=== PATIENT | male | born 1945 | race Caucasian/White ===

== ENCOUNTER → 2016-10-23 | Outpatient (CLI) | payer OTHER, MEDICARE ==
[~2016-10-23] MED LIST: ABILIFY2 MG PO; ABILIFY5 MG PO; ALLOPURINOL300 MG PO; AMLODIPINE BESY10 MG PO; AQUAPHOR W-NAT50 GM TP; BACTRIM,SEPT1 TABLET PO; BARRIER CREAM TP; BENTYL20 MG PO; BISAC-EVAC10 MG PR; Bactrim,Septra Singl PO; CALMOSEPTINE O120 GM TP; CELEBREX200 MG PO; CIPROFLOXACIN500 M1 PO; COLACE100 MG PO; COUMADIN,JANTOVE2 MG PO; COUMADIN1 MG PO; COUMADIN2 MG PO; COUMADIN2.5 MG PO; COUMADIN3 MG PO; CYMBALTA60 MG PO; Coumadin,Jantoven PO; Cymbalta PO; DIFLUCAN200 MG PO; DILAUDID2 MG PO; DULCOLAX10 MG PR; DURAGESIC25 MCG TD; Diflucan PO; Duragesic TD; FLOMAX0.4 MG PO; GLUCOPHAGE500 MG PO; GLYDO11 ML MM; GLYDO11 ML TP; GUAIFENESIN400 MG PO; HYDROCODON-ACE1 EAC8 PO; KEFLEX500 MG PO; LEVAQUIN500 MG PO; LEVAQUIN750 MG PO; LIDOCAINE HCL20 ML TP; LISINOPRIL40 MG PO; LOPRESSOR100 M1 PO; LOPRESSOR50 MG PO; LOTRIMIN AF24 GM TP; MAXIPIME1 GM IM; METFORMIN HCL1000 MG PO; METFORMIN HCL500 MG PO; METOPROLOL TAR100 MG PO; METOPROLOL TART50 MG PO; MILK OF MAGN PO; MILK OF MAGNESI10 ML PO; MIRALAX17 GM PO; MIRALAX255 GM PO; MUCUS RELIEF400 MG PO; NEURONTIN100 MG PO; NORCO 5/3251 TABLET PO; NORVASC10 MG PO; NORVASC5 MG PO; Norvasc PO; PHILLIPS'400 MG/5 M PO; PREDNISONE50 MG PO; PRUNE JUICE PO; Pradaxa PO; SENNA8.6 MG PO; SENOKOT,SENN1 TABLET PO; SIMVASTATIN10 MG PO; Senokot S,Pericolace PO; THERAGRAN1 TABLET PO; TOPROL XL50 MG PO; TYLENOL REGULA325 MG PO; TYLENOL WITH C1 EACH PO; Toprol XL PO; Vicodin,Norco 5/325 PO; WARFARIN PO; WARFARIN SODIU2.5 MG PO; WARFARIN SODIUM5 MG PO; ZESTRIL40 MG PO; ZOSYN 3.3753.375 GM IV; Zestril,Prinivil PO
== END ==
LOC: RAD 09:46
DX: R13.10 Dysphagia, unspecified (principal)
CPT/HCPCS: 74230; 92611 GN; G8996 GN CK; G8997 GN CK; G8998 GN CK

== ENCOUNTER → 2016-12-12 | Outpatient (CLI) | payer OTHER, MEDICARE | LOC: RAD 12:40 | DX: R13.10 Dysphagia, unspecified (principal) | CPT/HCPCS: 74230; 92611 GN ==

== ENCOUNTER 2017-01-03 18:19 | Inpatient (IN) | payer OTHER, MEDICARE ==
[~2017-01-03] VITALS: Ht 175.3 cm; Wt 94.1 kg
[2017-01-03 19:06] LABS: ADD MIUA? YES; BILIRUBIN NEGATIVE; BLOOD LARGE; COLOR YELLOW ((YELLOW)); GLUCOSE (STRIP) NEGATIVE; KETONES NEGATIVE; LEUKOCYTES LARGE; NITRITE POSITIVE; PROTEIN (STRIP) 100; SPECIFIC GRAVITY 1.011 (1.000-1.030); UROBILINOGEN 0.2 MG/DL (0.2-1.0)
[2017-01-03 19:11] LABS: HEMATOCRIT 42.4 % (38.0-50.0); MCH 27.6 PG (29.0-34.0); MCHC 31.6 G/DL (30.0-36.0); MCV 87.4 FL (86-99); MEAN PLAT.VOLUME 9.3 uM^3 (9.0-12.4); PLATELET COUNT 353 K/uL (156-360); RBC DIS.WIDTH-CV 19.2 % (11.8-14.6); RBC DIS.WIDTH-SD 61.1 % (39-53); RED BLOOD COUNT 4.85 M/uL (4.00-5.50); WHITE BLOOD COUNT 13.5 K/uL (4.1-10.2)
[2017-01-03 19:18] LABS: CHLORIDE 110 mEq/L (99-109); POTASSIUM 4.2 mEq/L (3.7-5.4); SODIUM 144 mEq/L (136-147)
[2017-01-03 19:19] LABS: GLUCOSE 165 mg/dL (70-99)
[2017-01-03 19:19] LABS: RED BLOOD CELLS TNTC /HPF (0-5); UCUL ADDED? YES; WHITE BLOOD CELLS TNTC /HPF (0-5)
[2017-01-03 19:21] LABS: ANION GAP 12 MEQ/L (2-14)
[2017-01-03 19:23] LABS: GFR ESTIMATE (CALCULATED) 33 mL/min/
[2017-01-03 19:24] LABS: UREA NITROGEN (BUN) 32 mg/dL (9-23)
[2017-01-03] MEDS ORDERED: COUMADIN2 MG PO (20:53)
[2017-01-03] MEDS ORDERED: WELLBUTRIN SR100 MG PO (20:55)
[2017-01-03] MEDS ORDERED: GABAPENTIN300 MG PO (20:55)
[2017-01-04 01:16] LABS: INTER. NORMALIZED RATIO 3.8; PROTHROMBIN TIME 39.9 (9.2-11.2); PTT 47.2 (25-32)
[2017-01-04 01:30] VITALS: BP 132/76
[2017-01-04 04:00] VITALS: BP 117/68
[2017-01-04 07:00] VITALS: BP 131/72
[2017-01-04 07:09] LABS: HEMATOCRIT 36.9 % (38.0-50.0); MCH 27.3 PG (29.0-34.0); MCHC 30.6 G/DL (30.0-36.0); MCV 89.1 FL (86-99); MEAN PLAT.VOLUME 10.2 uM^3 (9.0-12.4); PLATELET COUNT 295 K/uL (156-360); RBC DIS.WIDTH-CV 19.6 % (11.8-14.6); RBC DIS.WIDTH-SD 63.8 % (39-53); RED BLOOD COUNT 4.14 M/uL (4.00-5.50); WHITE BLOOD COUNT 14.8 K/uL (4.1-10.2)
[2017-01-04 07:28] LABS: ALKALINE PHOSPHATASE 138 IU/L (3-129); ANION GAP 10 MEQ/L (2-14); CHLORIDE 114 MEQ/L (99-109); GFR ESTIMATE (CALCULATED) 28 mL/min/; GLUCOSE 120 mg/dL (70-99); POTASSIUM 4.3 MEQ/L (3.7-5.4); SAMPLE HEMOLYSIS CHECK 0; SAMPLE ICTERIC CHECK 0; SAMPLE LIPEMIA CHECK 0; SODIUM 147 MEQ/L (136-147); TOTAL BILIRUBIN 0.9 MG/DL (0.0-1.0); UREA NITROGEN (BUN) 34 mg/dL (9-23)
[2017-01-04 08:35] LABS: INTERNAL CONTROL VALID? YES
[2017-01-04 11:35] VITALS: BP 133/77
[2017-01-04 12:54] LABS: INTER. NORMALIZED RATIO 3.5; PROTHROMBIN TIME 37.5 (9.2-11.2)
[2017-01-04 17:00] VITALS: BP 107/69
[2017-01-04 17:31] LABS: POINT-OF-CARE USER ID 612031306
[2017-01-04 17:58] LABS: BASE EXCESS 0 mEq/L (-3 to +3); BICARBONATE 24.8 mEq/L (22-26); CARBOXY HGB 2.5 % (0-5); COMMENTS - BLOOD GASES A+C+; DEVICE NC; METHEMOGLOBIN 1.8 % (0-1.5); O2 FLOW 2 L/MIN; PCO2 40 mm Hg (35-45); PO2 60 mm Hg (80-100); SITE RR
[2017-01-04 22:01] VITALS: BP 102/57
[2017-01-05 00:49] VITALS: BP 98/62
[2017-01-05 06:53] LABS: EOSINOPHIL COUNT 0.2 K/uL (0-0.3); IMMATURE GRANULOCYTE (%) 0.5 % (0.0-0.7); IMMATURE GRANULOCYTE COUNT 0.1 K/uL; LYMPHOCYTE COUNT 0.9 K/uL (1.0-2.8); MCHC 31.4 G/DL (30.0-36.0); MCV 89.2 FL (86-99); MEAN PLAT.VOLUME 10.1 uM^3 (9.0-12.4); MONOCYTE (%) 7.7 % (3-12); MONOCYTE COUNT 0.8 K/uL (0-0.8); NEUTROPHIL (%) 80.7 % (45-76); PLATELET COUNT 267 K/uL (156-360); RBC DIS.WIDTH-CV 19.4 % (11.8-14.6); RBC DIS.WIDTH-SD 63.3 % (39-53); RED BLOOD COUNT 4.15 M/uL (4.00-5.50)
[2017-01-05 06:54] LABS: WHITE BLOOD COUNT 9.9 K/uL (4.1-10.2)
[2017-01-05 06:58] LABS: ANION GAP 9 MEQ/L (2-14); CHLORIDE 112 MEQ/L (99-109); GFR ESTIMATE (CALCULATED) 37 mL/min/; GLUCOSE 117 mg/dL (70-99); MAGNESIUM 1.8 mg/dl (1.3-2.7); POTASSIUM 3.8 MEQ/L (3.7-5.4); SAMPLE HEMOLYSIS CHECK 0; SAMPLE ICTERIC CHECK 0; SAMPLE LIPEMIA CHECK 0; SODIUM 148 MEQ/L (136-147); UREA NITROGEN (BUN) 28 mg/dL (9-23)
[2017-01-05 08:33] VITALS: BP 112/62
[2017-01-05 12:06] VITALS: BP 102/68
[2017-01-05 15:00] VITALS: BP 108/68
[2017-01-05 19:35] VITALS: BP 118/64
[2017-01-05 23:13] VITALS: BP 98/62
[2017-01-06 03:08] VITALS: BP 114/66
[2017-01-06 06:20] LABS: EOSINOPHIL (%) 4.1 % (0-5); EOSINOPHIL COUNT 0.3 K/uL (0-0.3); HEMATOCRIT 33.6 % (38.0-50.0); IMMATURE GRANULOCYTE (%) 0.3 % (0.0-0.7); INSTRUMENT ABS NEUTROPHIL CT 5.1 K/uL; LYMPHOCYTE COUNT 0.7 K/uL (1.0-2.8); MCH 27.5 PG (29.0-34.0); MCHC 31.3 G/DL (30.0-36.0); MEAN PLAT.VOLUME 10.1 uM^3 (9.0-12.4); MONOCYTE (%) 7.5 % (3-12); MONOCYTE COUNT 0.5 K/uL (0-0.8); NEUTROPHIL COUNT 5.1 K/uL (1.8-6.4); PLATELET COUNT 265 K/uL (156-360); RBC DIS.WIDTH-CV 18.6 % (11.8-14.6); RBC DIS.WIDTH-SD 59.9 % (39-53); RED BLOOD COUNT 3.82 M/uL (4.00-5.50)
[2017-01-06 06:25] LABS: WHITE BLOOD COUNT 6.6 K/uL (4.1-10.2)
[2017-01-06 07:05] LABS: ANION GAP 8 MEQ/L (2-14); CHLORIDE 103 MEQ/L (99-109); POTASSIUM 3.1 MEQ/L (3.7-5.4); SAMPLE HEMOLYSIS CHECK 0; SAMPLE ICTERIC CHECK 0; SAMPLE LIPEMIA CHECK 0; UREA NITROGEN (BUN) 18 mg/dL (9-23)
[2017-01-06 07:15] LABS: GFR ESTIMATE (CALCULATED) > 59 mL/min/; GLUCOSE 83 mg/dL (70-99); SODIUM 138 MEQ/L (136-147)
[2017-01-06 08:15] VITALS: BP 110/72
[2017-01-06 10:25] LABS: PROTHROMBIN TIME 20.5 (9.2-11.2)
[2017-01-06 11:31] LABS: POINT-OF-CARE METER ID UU14162508
[2017-01-06 11:48] VITALS: BP 120/72
[2017-01-06 15:05] VITALS: BP 118/74
[2017-01-06 16:25] LABS: POINT-OF-CARE METER ID UU14162508
[2017-01-06 19:23] VITALS: BP 123/70
[2017-01-06 23:48] VITALS: BP 127/66
[2017-01-07 03:42] VITALS: BP 139/70
[2017-01-07 06:49] LABS: EOSINOPHIL (%) 3.9 % (0-5); EOSINOPHIL COUNT 0.2 K/uL (0-0.3); HEMATOCRIT 34.7 % (38.0-50.0); IMMATURE GRANULOCYTE (%) 0.4 % (0.0-0.7); INSTRUMENT ABS NEUTROPHIL CT 3.1 K/uL; LYMPHOCYTE COUNT 0.8 K/uL (1.0-2.8); MCH 28.5 PG (29.0-34.0); MCHC 33.1 G/DL (30.0-36.0); MCV 85.9 FL (86-99); MEAN PLAT.VOLUME 9.9 uM^3 (9.0-12.4); MONOCYTE (%) 9.2 % (3-12); MONOCYTE COUNT 0.4 K/uL (0-0.8); NEUTROPHIL (%) 68.1 % (45-76); NEUTROPHIL COUNT 3.1 K/uL (1.8-6.4); PLATELET COUNT 284 K/uL (156-360); RBC DIS.WIDTH-CV 17.6 % (11.8-14.6); RBC DIS.WIDTH-SD 55.7 % (39-53); RED BLOOD COUNT 4.04 M/uL (4.00-5.50)
[2017-01-07 06:50] LABS: WHITE BLOOD COUNT 4.6 K/uL (4.1-10.2)
[2017-01-07 06:53] LABS: INTER. NORMALIZED RATIO 1.7; PROTHROMBIN TIME 17.9 (9.2-11.2)
[2017-01-07 07:04] LABS: ANION GAP 11 MEQ/L (2-14); CHLORIDE 102 MEQ/L (99-109); GFR ESTIMATE (CALCULATED) > 59 mL/min/; GLUCOSE 79 mg/dL (70-99); POTASSIUM 3.4 MEQ/L (3.7-5.4); SAMPLE HEMOLYSIS CHECK 0; SAMPLE ICTERIC CHECK 0; SAMPLE LIPEMIA CHECK 0; SODIUM 138 MEQ/L (136-147); UREA NITROGEN (BUN) 10 mg/dL (9-23)
[2017-01-07 07:05] LABS: MAGNESIUM 1.2 mg/dl (1.3-2.7)
[2017-01-07 07:12] VITALS: BP 110/65
[2017-01-07 11:05] VITALS: BP 118/74
[2017-01-07 12:05] LABS: POINT-OF-CARE METER ID UU14162508
[2017-01-07 15:43] VITALS: BP 127/76
[2017-01-07 18:54] VITALS: BP 100/58
[2017-01-08 00:15] VITALS: BP 114/63
[2017-01-08 00:38] LABS: POINT-OF-CARE METER ID UU14162508
[2017-01-08 03:17] VITALS: BP 125/78
[2017-01-08 06:55] VITALS: BP 118/70
[2017-01-08 07:09] LABS: EOSINOPHIL (%) 3.4 % (0-5); EOSINOPHIL COUNT 0.1 K/uL (0-0.3); HEMATOCRIT 36.3 % (38.0-50.0); IMMATURE GRANULOCYTE (%) 0.5 % (0.0-0.7); INSTRUMENT ABS NEUTROPHIL CT 2.6 K/uL; LYMPHOCYTE COUNT 0.9 K/uL (1.0-2.8); MCH 27.9 PG (29.0-34.0); MCHC 32.8 G/DL (30.0-36.0); MCV 85.2 FL (86-99); MEAN PLAT.VOLUME 9.5 uM^3 (9.0-12.4); MONOCYTE (%) 10.8 % (3-12); MONOCYTE COUNT 0.4 K/uL (0-0.8); NEUTROPHIL COUNT 2.6 K/uL (1.8-6.4); PLATELET COUNT 267 K/uL (156-360); RBC DIS.WIDTH-CV 18.1 % (11.8-14.6); RBC DIS.WIDTH-SD 56.1 % (39-53); RED BLOOD COUNT 4.26 M/uL (4.00-5.50); WHITE BLOOD COUNT 4.1 K/uL (4.1-10.2)
[2017-01-08 07:28] LABS: INTER. NORMALIZED RATIO 1.7; PROTHROMBIN TIME 17.6 (9.2-11.2)
[2017-01-08 07:34] LABS: ALKALINE PHOSPHATASE 92 IU/L (3-129); ANION GAP 9 MEQ/L (2-14); CHLORIDE 105 MEQ/L (99-109); GFR ESTIMATE (CALCULATED) > 59 mL/min/; GLUCOSE 92 mg/dL (70-99); POTASSIUM 3.5 MEQ/L (3.7-5.4); SAMPLE HEMOLYSIS CHECK 0; SAMPLE ICTERIC CHECK 0; SAMPLE LIPEMIA CHECK 0; SODIUM 137 MEQ/L (136-147); TOTAL BILIRUBIN 0.5 MG/DL (0.0-1.0); UREA NITROGEN (BUN) 9 mg/dL (9-23)
[2017-01-08 10:35] LABS: MAGNESIUM 1.5 mg/dl (1.3-2.7)
[2017-01-08 11:55] VITALS: BP 118/67
[2017-01-08] MEDS ORDERED: ZYVOX600 MG PO (12:06)
[2017-01-08] MEDS ORDERED: FOLIC ACID1 MG PO (12:08)
[2017-01-08] MEDS ORDERED: CYANOCOBALAM1000 MCG PO (12:08)
[2017-01-08 12:09] LABS: POINT-OF-CARE METER ID UU14162508
== END 2017-01-08 16:03 | DRG 698 ==
LOC: EME → EDBD 18:19 → EDOF 23:49 → 2EAST 23:49
PROVIDERS: Emergency Medicine; Hospitalist; Internal Medicine; Internal Medicine Nephrology
DX: T83.511A Infection and inflammatory reaction due to indwelling urethral catheter, initial encounter (principal); A41.9 Sepsis, unspecified organism; R65.20 Severe sepsis without septic shock; N13.6 Pyonephrosis; E66.9 Obesity, unspecified; Z68.30 Body mass index [BMI] 30.0-30.9, adult; I48.2 Chronic atrial fibrillation; Z79.01 Long term (current) use of anticoagulants; Z89.611 Acquired absence of right leg above knee; E11.9 Type 2 diabetes mellitus without complications; Z96.653 Presence of artificial knee joint, bilateral; I73.9 Peripheral vascular disease, unspecified; N17.9 Acute kidney failure, unspecified; E87.2 Acidosis; G93.41 Metabolic encephalopathy; I10 Essential (primary) hypertension; E86.0 Dehydration; N17.0 Acute kidney failure with tubular necrosis; J98.11 Atelectasis; T83.028A Displacement of other urinary catheter, initial encounter; E87.0 Hyperosmolality and hypernatremia; E87.6 Hypokalemia; B95.62 Methicillin resistant Staphylococcus aureus infection as the cause of diseases classified elsewhere; S37.39XA Other injury of urethra, initial encounter; Y84.6 Urinary catheterization as the cause of abnormal reaction of the patient, or of later complication, without mention of misadventure at the time of the procedure; N47.2 Paraphimosis; Z86.73 Personal history of transient ischemic attack (TIA), and cerebral infarction without residual deficits; N31.9 Neuromuscular dysfunction of bladder, unspecified; N39.498 Other specified urinary incontinence; L30.9 Dermatitis, unspecified
CPT/HCPCS: 36600; 70450; 71010; 71250; 76770; 80048; 80053; 81003; 82140; 82607; 82746; 82803; 82948; 83605; 83735; 84100; 85025; 85027; 85610; 85730; 87040; 87077; 87086; 87147; 87186; 87449; 87801; 92526 GN; 92610 GN; 93005; 94799; 99281; 99285; J0456; J1815; J2020; J2543; J3475; J3480; J7030; J7050

== ENCOUNTER 2017-01-17 17:02 | Inpatient (IN) | payer OTHER, MEDICARE ==
[~2017-01-17] VITALS: Ht 180.3 cm; Wt 89.6 kg
[~2017-01-17 17:02] MED LIST changes: +CYANOCOBALAM1000 MCG PO; +FOLIC ACID1 MG PO; +GABAPENTIN300 MG PO; +WELLBUTRIN SR100 MG PO; +ZYVOX600 MG PO
[2017-01-17 17:36] LABS: MCHC 32.1 G/DL (30.0-36.0); MCV 87.4 FL (86-99); RBC DIS.WIDTH-CV 17.5 % (11.8-14.6); RBC DIS.WIDTH-SD 56.5 % (39-53); RED BLOOD COUNT 4.92 M/uL (4.00-5.50); WHITE BLOOD COUNT 6.5 K/uL (4.1-10.2)
[2017-01-17 17:39] LABS: ADD MIUA? YES; BILIRUBIN NEGATIVE; BLOOD SMALL; COLOR YELLOW ((YELLOW)); GLUCOSE (STRIP) NEGATIVE; KETONES NEGATIVE; LEUKOCYTES LARGE; NITRITE POSITIVE; PROTEIN (STRIP) 100; SPECIFIC GRAVITY 1.016 (1.000-1.030); UROBILINOGEN 0.2 MG/DL (0.2-1.0)
[2017-01-17 17:47] LABS: EOSINOPHIL (%) 2.3 % (0-5); EOSINOPHIL COUNT 0.2 K/uL (0-0.3); IMMATURE GRANULOCYTE (%) 0.3 % (0.0-0.7); INSTRUMENT ABS NEUTROPHIL CT 4.5 K/uL; LYMPHOCYTE COUNT 1.2 K/uL (1.0-2.8); MONOCYTE (%) 8.3 % (3-12); MONOCYTE COUNT 0.5 K/uL (0-0.8); NEUTROPHIL (%) 69.6 % (45-76); NEUTROPHIL COUNT 4.5 K/uL (1.8-6.4); PLATELET COUNT 363 K/uL (156-360)
[2017-01-17 17:53] LABS: INTER. NORMALIZED RATIO 3.9; PROTHROMBIN TIME 41.4 (9.2-11.2)
[2017-01-17 17:57] LABS: TROP-I INTERPRETATION NEGATIVE; TROPONIN-I < 0.01 ng/mL (0.0-0.30)
[2017-01-17 18:00] LABS: BASE EXCESS 1.9 mEq/L (-3 to +3); BICARBONATE 26.6 mEq/L (22-26); CARBOXY HGB 1.7 % (0-5); COMMENTS - BLOOD GASES C+A+; DEVICE NRBM; METHEMOGLOBIN 1.1 % (0-1.5); O2 FLOW 15 L/MIN; PCO2 41 mm Hg (35-45); PO2 277 mm Hg (80-100); SITE LR; TOTAL RESP RATE 23 resp/min; pH 7.42 (7.35-7.45)
[2017-01-17 18:08] LABS: BACTERIA 3+ /HPF; EPITHELIAL CELLS 1+ /HPF; MUCUS NONE SEEN /LPF; OTHER BUDDING YEAST; RED BLOOD CELLS 0-5 /HPF (0-5); UCUL ADDED? YES; WHITE BLOOD CELLS TNTC /HPF (0-5)
[2017-01-17 18:11] LABS: CHLORIDE 110 mEq/L (99-109); POTASSIUM 4.2 mEq/L (3.7-5.4); SODIUM 143 mEq/L (136-147)
[2017-01-17 18:13] LABS: GLUCOSE 138 mg/dL (70-99)
[2017-01-17 18:14] LABS: ANION GAP 12 MEQ/L (2-14)
[2017-01-17 18:16] LABS: GFR ESTIMATE (CALCULATED) > 59 mL/min/
[2017-01-17 18:17] LABS: UREA NITROGEN (BUN) 20 mg/dL (9-23)
[2017-01-17] MEDS ORDERED: FOLIC ACID1 MG PO (19:51)
[2017-01-17] MEDS ORDERED: WELLBUTRIN100 MG PO (19:51)
[2017-01-17] MEDS ORDERED: COUMADIN3 MG PO (19:52)
[2017-01-17] MEDS ORDERED: AUGMENTIN875 MG PO (19:53)
[2017-01-17] MEDS ORDERED: FLORASTOR250 MG PO (19:54)
[2017-01-17 21:43] LABS: TOTAL BILIRUBIN 0.4 mg/dL (0.0-1.0)
[2017-01-17 21:44] LABS: ALKALINE PHOSPHATASE 116 IU/L (3-129)
[2017-01-17 21:46] LABS: DIRECT BILIRUBIN 0.2 mg/dL (0.0-0.3)
[2017-01-17 21:50] VITALS: BP 142/82
[2017-01-17 23:55] VITALS: BP 147/68
[2017-01-18 03:46] VITALS: BP 120/79
[2017-01-18 08:00] LABS: HEMATOCRIT 40.3 % (38.0-50.0); MCH 28.2 PG (29.0-34.0); MCHC 31.8 G/DL (30.0-36.0); MCV 88.8 FL (86-99); MEAN PLAT.VOLUME 9.2 uM^3 (9.0-12.4); PLATELET COUNT 334 K/uL (156-360); RBC DIS.WIDTH-CV 17.2 % (11.8-14.6); RBC DIS.WIDTH-SD 56.2 % (39-53); RED BLOOD COUNT 4.54 M/uL (4.00-5.50)
[2017-01-18 08:02] LABS: WHITE BLOOD COUNT 10.8 K/uL (4.1-10.2)
[2017-01-18 08:15] LABS: ALKALINE PHOSPHATASE 108 IU/L (3-129); ANION GAP 10 MEQ/L (2-14); CHLORIDE 110 MEQ/L (99-109); GFR ESTIMATE (CALCULATED) > 59 mL/min/; GLUCOSE 113 mg/dL (70-99); POTASSIUM 4.1 MEQ/L (3.7-5.4); SAMPLE HEMOLYSIS CHECK 0; SAMPLE ICTERIC CHECK 0; SAMPLE LIPEMIA CHECK 0; SODIUM 145 MEQ/L (136-147); TOTAL BILIRUBIN 0.7 MG/DL (0.0-1.0); UREA NITROGEN (BUN) 18 mg/dL (9-23)
[2017-01-18 08:27] VITALS: BP 150/89
[2017-01-18 08:37] LABS: PROTHROMBIN TIME 42.2 (9.2-11.2)
[2017-01-18 12:23] VITALS: BP 142/74
[2017-01-18 20:45] VITALS: BP 138/77
[2017-01-19] VITALS (7 sets, daily range): BP systolic 115–147; BP diastolic 62–89
[2017-01-19 06:37] LABS: INTER. NORMALIZED RATIO 3.7; PROTHROMBIN TIME 38.7 (9.2-11.2)
[2017-01-20 04:35] VITALS: BP 120/68
[2017-01-20 07:11] VITALS: BP 132/78
[2017-01-20 08:37] LABS: INTER. NORMALIZED RATIO 3.2; PROTHROMBIN TIME 33.3 (9.2-11.2)
[2017-01-20 11:38] VITALS: BP 124/78
[2017-01-20 15:00] VITALS: BP 142/86
[2017-01-20 19:58] VITALS: BP 121/71
[2017-01-20 23:47] VITALS: BP 120/78
[2017-01-21 04:02] VITALS: BP 115/77
[2017-01-21 07:46] LABS: INTER. NORMALIZED RATIO 2.2; PROTHROMBIN TIME 23.1 (9.2-11.2)
[2017-01-21 07:52] VITALS: BP 126/74
[2017-01-21 11:07] LABS: HEMATOCRIT 36.9 % (38.0-50.0); MCH 28.6 PG (29.0-34.0); MCHC 33.1 G/DL (30.0-36.0); MCV 86.4 FL (86-99); MEAN PLAT.VOLUME 9.8 uM^3 (9.0-12.4); PLATELET COUNT 288 K/uL (156-360); RBC DIS.WIDTH-CV 16.7 % (11.8-14.6); RBC DIS.WIDTH-SD 52.1 % (39-53); RED BLOOD COUNT 4.27 M/uL (4.00-5.50)
[2017-01-21 11:08] LABS: WHITE BLOOD COUNT 5.2 K/uL (4.1-10.2)
[2017-01-21 11:25] LABS: ANION GAP 9 MEQ/L (2-14); CHLORIDE 108 MEQ/L (99-109); GFR ESTIMATE (CALCULATED) > 59 mL/min/; GLUCOSE 106 mg/dL (70-99); POTASSIUM 3.4 MEQ/L (3.7-5.4); SAMPLE HEMOLYSIS CHECK 0; SAMPLE ICTERIC CHECK 0; SAMPLE LIPEMIA CHECK 0; SODIUM 141 MEQ/L (136-147); UREA NITROGEN (BUN) 7 mg/dL (9-23)
[2017-01-21 11:35] VITALS: BP 127/81
[2017-01-21 16:19] VITALS: BP 120/67
[2017-01-21 20:03] VITALS: BP 99/71
[2017-01-21 23:27] VITALS: BP 111/65
[2017-01-22 04:08] VITALS: BP 116/70
[2017-01-22 07:48] LABS: HEMATOCRIT 35.6 % (38.0-50.0); MCH 28.5 PG (29.0-34.0); MCHC 32.9 G/DL (30.0-36.0); MCV 86.6 FL (86-99); MEAN PLAT.VOLUME 9.7 uM^3 (9.0-12.4); PLATELET COUNT 257 K/uL (156-360); RBC DIS.WIDTH-CV 16.4 % (11.8-14.6); RBC DIS.WIDTH-SD 52.2 % (39-53); RED BLOOD COUNT 4.11 M/uL (4.00-5.50); WHITE BLOOD COUNT 5.1 K/uL (4.1-10.2)
[2017-01-22 07:57] LABS: INTER. NORMALIZED RATIO 2.4; PROTHROMBIN TIME 25.3 (9.2-11.2)
[2017-01-22 08:16] LABS: ANION GAP 9 MEQ/L (2-14); CHLORIDE 110 MEQ/L (99-109); GFR ESTIMATE (CALCULATED) > 59 mL/min/; GLUCOSE 94 mg/dL (70-99); POTASSIUM 3.4 MEQ/L (3.7-5.4); SAMPLE HEMOLYSIS CHECK 0; SAMPLE ICTERIC CHECK 0; SAMPLE LIPEMIA CHECK 0; SODIUM 144 MEQ/L (136-147); UREA NITROGEN (BUN) 9 mg/dL (9-23)
[2017-01-22 08:34] VITALS: BP 118/71
[2017-01-22 12:34] VITALS: BP 94/67
[2017-01-22 17:10] VITALS: BP 121/75
[2017-01-22 20:00] VITALS: BP 114/66
[2017-01-23] VITALS: BP 101/69
[2017-01-23 03:48] VITALS: BP 117/60
[2017-01-23 08:11] VITALS: BP 116/64
[2017-01-23 08:38] LABS: EOSINOPHIL (%) 3.4 % (0-5); EOSINOPHIL COUNT 0.2 K/uL (0-0.3); HEMATOCRIT 33.8 % (38.0-50.0); IMMATURE GRANULOCYTE (%) 0.3 % (0.0-0.7); INSTRUMENT ABS NEUTROPHIL CT 4.1 K/uL; LYMPHOCYTE COUNT 1.1 K/uL (1.0-2.8); MCH 28.8 PG (29.0-34.0); MCHC 33.4 G/DL (30.0-36.0); MEAN PLAT.VOLUME 9.6 uM^3 (9.0-12.4); MONOCYTE (%) 11.4 % (3-12); MONOCYTE COUNT 0.7 K/uL (0-0.8); NEUTROPHIL (%) 66.4 % (45-76); NEUTROPHIL COUNT 4.1 K/uL (1.8-6.4); PLATELET COUNT 233 K/uL (156-360); RBC DIS.WIDTH-CV 16.5 % (11.8-14.6); RBC DIS.WIDTH-SD 52.5 % (39-53); RED BLOOD COUNT 3.93 M/uL (4.00-5.50); WHITE BLOOD COUNT 6.2 K/uL (4.1-10.2)
[2017-01-23 08:50] LABS: PROTHROMBIN TIME 31.8 (9.2-11.2)
[2017-01-23 08:56] LABS: CHLORIDE 112 mEq/L (99-109); POTASSIUM 3.6 mEq/L (3.7-5.4); SODIUM 143 mEq/L (136-147)
[2017-01-23 08:57] LABS: GLUCOSE 96 mg/dL (70-99)
[2017-01-23 08:59] LABS: ANION GAP 9 MEQ/L (2-14)
[2017-01-23 09:01] LABS: GFR ESTIMATE (CALCULATED) > 59 mL/min/
[2017-01-23 09:02] LABS: UREA NITROGEN (BUN) 10 mg/dL (9-23)
[2017-01-23 12:03] VITALS: BP 120/64
[2017-01-23 16:25] VITALS: BP 118/62
[2017-01-23 20:00] VITALS: BP 119/75
[2017-01-23 20:30] LABS: C DIFF TOXIN NEGATIVE (NEGATIVE)
[2017-01-23 20:38] LABS: PROBE CHECK PASS; SPECIMEN PROCESSING CONTROL PASS
[2017-01-24] VITALS (7 sets, daily range): BP systolic 117–151; BP diastolic 72–74
[2017-01-24 07:13] LABS: EOSINOPHIL (%) 3.4 % (0-5); EOSINOPHIL COUNT 0.2 K/uL (0-0.3); HEMATOCRIT 36.3 % (38.0-50.0); IMMATURE GRANULOCYTE (%) 0.3 % (0.0-0.7); INSTRUMENT ABS NEUTROPHIL CT 3.6 K/uL; LYMPHOCYTE COUNT 1.3 K/uL (1.0-2.8); MCH 28.1 PG (29.0-34.0); MCHC 32.2 G/DL (30.0-36.0); MCV 87.1 FL (86-99); MEAN PLAT.VOLUME 9.8 uM^3 (9.0-12.4); MONOCYTE (%) 11.7 % (3-12); MONOCYTE COUNT 0.7 K/uL (0-0.8); NEUTROPHIL (%) 62.2 % (45-76); NEUTROPHIL COUNT 3.6 K/uL (1.8-6.4); PLATELET COUNT 258 K/uL (156-360); RBC DIS.WIDTH-CV 16.9 % (11.8-14.6); RBC DIS.WIDTH-SD 53.2 % (39-53); RED BLOOD COUNT 4.17 M/uL (4.00-5.50); WHITE BLOOD COUNT 5.8 K/uL (4.1-10.2)
[2017-01-24 07:28] LABS: INTER. NORMALIZED RATIO 2.6
[2017-01-24 07:37] LABS: ANION GAP 10 MEQ/L (2-14); CHLORIDE 110 MEQ/L (99-109); GFR ESTIMATE (CALCULATED) > 59 mL/min/; GLUCOSE 83 mg/dL (70-99); POTASSIUM 3.7 MEQ/L (3.7-5.4); SAMPLE HEMOLYSIS CHECK 0; SAMPLE ICTERIC CHECK 0; SAMPLE LIPEMIA CHECK 0; SODIUM 145 MEQ/L (136-147); UREA NITROGEN (BUN) 8 mg/dL (9-23)
[2017-01-25 03:55] VITALS: BP 115/65
[2017-01-25 07:13] LABS: EOSINOPHIL (%) 3.6 % (0-5); EOSINOPHIL COUNT 0.2 K/uL (0-0.3); HEMATOCRIT 34.8 % (38.0-50.0); IMMATURE GRANULOCYTE (%) 0.3 % (0.0-0.7); INSTRUMENT ABS NEUTROPHIL CT 3.8 K/uL; LYMPHOCYTE COUNT 1.1 K/uL (1.0-2.8); MCH 28.6 PG (29.0-34.0); MCHC 33.3 G/DL (30.0-36.0); MCV 85.9 FL (86-99); MONOCYTE (%) 11.7 % (3-12); MONOCYTE COUNT 0.7 K/uL (0-0.8); NEUTROPHIL (%) 65.1 % (45-76); NEUTROPHIL COUNT 3.8 K/uL (1.8-6.4); PLATELET COUNT 265 K/uL (156-360); RBC DIS.WIDTH-CV 16.8 % (11.8-14.6); RBC DIS.WIDTH-SD 52.9 % (39-53); RED BLOOD COUNT 4.05 M/uL (4.00-5.50); WHITE BLOOD COUNT 5.8 K/uL (4.1-10.2)
[2017-01-25 07:34] VITALS: BP 122/69
[2017-01-25 07:34] LABS: ANION GAP 11 MEQ/L (2-14); CHLORIDE 110 MEQ/L (99-109); GFR ESTIMATE (CALCULATED) > 59 mL/min/; GLUCOSE 84 mg/dL (70-99); POTASSIUM 3.1 MEQ/L (3.7-5.4); SAMPLE HEMOLYSIS CHECK 0; SAMPLE ICTERIC CHECK 0; SAMPLE LIPEMIA CHECK 0; SODIUM 144 MEQ/L (136-147); UREA NITROGEN (BUN) 7 mg/dL (9-23)
[2017-01-25 10:50] LABS: INTER. NORMALIZED RATIO 2.1; PROTHROMBIN TIME 21.6 (9.2-11.2)
[2017-01-25 11:33] VITALS: BP 120/70
[2017-01-25 15:25] VITALS: BP 98/59
[2017-01-25 19:45] VITALS: BP 120/68
[2017-01-25 23:13] VITALS: BP 126/70
[2017-01-26 03:34] VITALS: BP 124/80
[2017-01-26 05:27] LABS: INTER. NORMALIZED RATIO 2.1
[2017-01-26 05:40] LABS: EOSINOPHIL (%) 3.5 % (0-5); EOSINOPHIL COUNT 0.2 K/uL (0-0.3); HEMATOCRIT 34.8 % (38.0-50.0); IMMATURE GRANULOCYTE (%) 0.4 % (0.0-0.7); INSTRUMENT ABS NEUTROPHIL CT 3.4 K/uL; LYMPHOCYTE COUNT 0.9 K/uL (1.0-2.8); MCH 27.9 PG (29.0-34.0); MCHC 32.5 G/DL (30.0-36.0); MCV 85.9 FL (86-99); MONOCYTE (%) 12.3 % (3-12); MONOCYTE COUNT 0.6 K/uL (0-0.8); NEUTROPHIL (%) 65.1 % (45-76); NEUTROPHIL COUNT 3.4 K/uL (1.8-6.4); RBC DIS.WIDTH-CV 16.9 % (11.8-14.6); RED BLOOD COUNT 4.05 M/uL (4.00-5.50); WHITE BLOOD COUNT 5.2 K/uL (4.1-10.2)
[2017-01-26 06:23] LABS: PLAT.SUFFICIENCY ADEQUATE
[2017-01-26 06:24] LABS: PLATELET CLUMPS PRESENT - PLATELET C
[2017-01-26 06:58] LABS: ANION GAP 9 MEQ/L (2-14); CHLORIDE 111 MEQ/L (99-109); GFR ESTIMATE (CALCULATED) > 59 mL/min/; GLUCOSE 93 mg/dL (70-99); POTASSIUM 3.3 MEQ/L (3.7-5.4); SAMPLE HEMOLYSIS CHECK 0; SAMPLE ICTERIC CHECK 0; SAMPLE LIPEMIA CHECK 0; SODIUM 142 MEQ/L (136-147); UREA NITROGEN (BUN) 6 mg/dL (9-23)
[2017-01-26 07:01] LABS: MAGNESIUM 1.7 mg/dl (1.3-2.7)
[2017-01-26 07:41] VITALS: BP 134/66
[2017-01-26 11:58] VITALS: BP 130/62
[2017-01-26 16:03] VITALS: BP 132/62
[2017-01-26 19:52] VITALS: BP 134/66
[2017-01-26 23:39] VITALS: BP 123/66
[2017-01-27 04:20] VITALS: BP 125/70
[2017-01-27 05:37] LABS: EOSINOPHIL COUNT 0.1 K/uL (0-0.3); HEMATOCRIT 36.1 % (38.0-50.0); IMMATURE GRANULOCYTE (%) 0.2 % (0.0-0.7); INSTRUMENT ABS NEUTROPHIL CT 2.9 K/uL; LYMPHOCYTE COUNT 0.9 K/uL (1.0-2.8); MCH 29.2 PG (29.0-34.0); MCHC 33.5 G/DL (30.0-36.0); MONOCYTE (%) 13.6 % (3-12); MONOCYTE COUNT 0.6 K/uL (0-0.8); NEUTROPHIL (%) 62.6 % (45-76); NEUTROPHIL COUNT 2.9 K/uL (1.8-6.4); PLATELET COUNT 283 K/uL (156-360); RBC DIS.WIDTH-CV 17.2 % (11.8-14.6); RED BLOOD COUNT 4.15 M/uL (4.00-5.50); WHITE BLOOD COUNT 4.6 K/uL (4.1-10.2)
[2017-01-27 05:59] LABS: INTER. NORMALIZED RATIO 1.6; PROTHROMBIN TIME 16.4 (9.2-11.2)
[2017-01-27 06:27] LABS: ANION GAP 10 MEQ/L (2-14); CHLORIDE 111 MEQ/L (99-109); GFR ESTIMATE (CALCULATED) > 59 mL/min/; GLUCOSE 89 mg/dL (70-99); POTASSIUM 3.8 MEQ/L (3.7-5.4); SAMPLE HEMOLYSIS CHECK 0; SAMPLE ICTERIC CHECK 0; SAMPLE LIPEMIA CHECK 0; SODIUM 145 MEQ/L (136-147); UREA NITROGEN (BUN) 5 mg/dL (9-23)
[2017-01-27 08:00] VITALS: BP 136/64
[2017-01-27 11:53] VITALS: BP 130/62
[2017-01-27 16:02] VITALS: BP 112/65
[2017-01-27 16:29] LABS: BODY FLUID LDH 214 IU/L; BODY FLUID PROTEIN 3.4 G/DL
[2017-01-27 16:54] LABS: ALKALINE PHOSPHATASE 96 IU/L (3-129); DIRECT BILIRUBIN 0.1 mg/dL (0.0-0.3); TOTAL BILIRUBIN 0.5 MG/DL (0.0-1.0)
[2017-01-27 20:02] VITALS: BP 113/71
[2017-01-27 23:43] VITALS: BP 118/74
[2017-01-28 05:20] VITALS: BP 108/77
[2017-01-28 05:55] LABS: EOSINOPHIL (%) 2.3 % (0-5); EOSINOPHIL COUNT 0.1 K/uL (0-0.3); HEMATOCRIT 37.9 % (38.0-50.0); IMMATURE GRANULOCYTE (%) 0.4 % (0.0-0.7); INSTRUMENT ABS NEUTROPHIL CT 3.4 K/uL; MCH 28.7 PG (29.0-34.0); MCHC 32.7 G/DL (30.0-36.0); MCV 87.7 FL (86-99); MEAN PLAT.VOLUME 10.2 uM^3 (9.0-12.4); MONOCYTE (%) 11.4 % (3-12); MONOCYTE COUNT 0.6 K/uL (0-0.8); NEUTROPHIL COUNT 3.4 K/uL (1.8-6.4); PLATELET COUNT 293 K/uL (156-360); RBC DIS.WIDTH-CV 17.2 % (11.8-14.6); RBC DIS.WIDTH-SD 55.7 % (39-53); RED BLOOD COUNT 4.32 M/uL (4.00-5.50); WHITE BLOOD COUNT 5.2 K/uL (4.1-10.2)
[2017-01-28 06:17] LABS: INTER. NORMALIZED RATIO 1.4; PROTHROMBIN TIME 14.3 (9.2-11.2)
[2017-01-28 07:11] LABS: ANION GAP 11 MEQ/L (2-14); CHLORIDE 109 MEQ/L (99-109); GFR ESTIMATE (CALCULATED) > 59 mL/min/; GLUCOSE 95 mg/dL (70-99); SAMPLE HEMOLYSIS CHECK 0; SAMPLE ICTERIC CHECK 0; SAMPLE LIPEMIA CHECK 0; SODIUM 144 MEQ/L (136-147); UREA NITROGEN (BUN) 7 mg/dL (9-23)
[2017-01-28 07:58] VITALS: BP 122/60
[2017-01-28 10:14] LABS: TYPE OF FLUID PLEURAL
[2017-01-28 11:00] LABS: BODY FLUID EOSINOPHILS 1 % (0-25); BODY FLUID RBC'S 587000 /MM^3 (0-100); BODY FLUID WBC'S 1773 /MM^3 (0-500); MONONUCLEAR WBC'S 98 %; POLYNUCLEAR WBC'S 1 % (0-25)
[2017-01-28 11:47] VITALS: BP 118/60
[2017-02-01 04:27] LABS: BODY FLUID PH 7.8 (())
== END 2017-01-28 17:05 | DRG 871 ==
LOC: EME 17:02 → EDOF 20:27 → 5SOUTH 20:27
PROVIDERS: Emergency Medicine; Hospitalist; Internal Medicine; Nurse Practitioner Adult Health
PROC: 0W9B3ZZ Drainage of Left Pleural Cavity, Percutaneous Approach (ICD-10-PCS; principal; 2017-01-27)
DX: A41.9 Sepsis, unspecified organism (principal); J69.0 Pneumonitis due to inhalation of food and vomit; R65.20 Severe sepsis without septic shock; N17.9 Acute kidney failure, unspecified; G93.41 Metabolic encephalopathy; J96.01 Acute respiratory failure with hypoxia; E87.2 Acidosis; E86.0 Dehydration; T83.511A Infection and inflammatory reaction due to indwelling urethral catheter, initial encounter; N39.0 Urinary tract infection, site not specified; B96.5 Pseudomonas (aeruginosa) (mallei) (pseudomallei) as the cause of diseases classified elsewhere; Y73.1 Therapeutic (nonsurgical) and rehabilitative gastroenterology and urology devices associated with adverse incidents; F03.90 Unspecified dementia, unspecified severity, without behavioral disturbance, psychotic disturbance, mood disturbance, and anxiety; J90 Pleural effusion, not elsewhere classified; E87.6 Hypokalemia; I11.9 Hypertensive heart disease without heart failure; E11.51 Type 2 diabetes mellitus with diabetic peripheral angiopathy without gangrene; I48.2 Chronic atrial fibrillation; F39 Unspecified mood [affective] disorder; E66.9 Obesity, unspecified; Z66 Do not resuscitate; Z96.653 Presence of artificial knee joint, bilateral; Z79.01 Long term (current) use of anticoagulants; Z68.27 Body mass index [BMI] 27.0-27.9, adult; Z89.611 Acquired absence of right leg above knee; Z86.73 Personal history of transient ischemic attack (TIA), and cerebral infarction without residual deficits; Z85.71 Personal history of Hodgkin lymphoma; Z88.1 Allergy status to other antibiotic agents; Z91.041 Radiographic dye allergy status
CPT/HCPCS: 36600; 70450; 70551; 71010; 71250; 74230; 80048; 80053; 80076; 81003; 82150 91; 82803; 82945; 83605; 83615; 83615 91; 83735; 83986 90; 84100; 84157; 84484; 85025; 85027; 85610; 87040; 87070; 87075; 87077; 87086 GA; 87186; 87205; 87493; 88108; 88305; 89051; 92526 GN; 92610 GN; 92611 GN; 93005; 94799; 99281; 99285; J1956; J2020; J2543; J3370; J7030; J7050

== ENCOUNTER 2017-03-14 19:19 | Inpatient (IN) | payer OTHER, MEDICARE ==
[~2017-03-14] VITALS: Ht 175.3 cm; Wt 84.4 kg
[~2017-03-14 19:19] MED LIST changes: +AUGMENTIN875 MG PO; +FLORASTOR250 MG PO; +WELLBUTRIN100 MG PO
[2017-03-14 20:15] LABS: ADD MIUA? YES; BILIRUBIN NEGATIVE; BLOOD SMALL; COLOR AMBER ((YELLOW)); GLUCOSE (STRIP) NEGATIVE; KETONES NEGATIVE; LEUKOCYTES LARGE; NITRITE NEGATIVE; PROTEIN (STRIP) 100; SPECIFIC GRAVITY 1.014 (1.000-1.030); UROBILINOGEN 0.2 MG/DL (0.2-1.0)
[2017-03-14 20:26] LABS: EOSINOPHIL (%) 2.6 % (0-5); EOSINOPHIL COUNT 0.1 K/uL (0-0.3); HEMATOCRIT 38.9 % (38.0-50.0); IMMATURE GRANULOCYTE (%) 0.2 % (0.0-0.7); INSTRUMENT ABS NEUTROPHIL CT 3.6 K/uL; LYMPHOCYTE COUNT 1.1 K/uL (1.0-2.8); MCH 27.6 PG (29.0-34.0); MCHC 31.4 G/DL (30.0-36.0); MEAN PLAT.VOLUME 9.6 uM^3 (9.0-12.4); MONOCYTE (%) 9.4 % (3-12); MONOCYTE COUNT 0.5 K/uL (0-0.8); NEUTROPHIL COUNT 3.6 K/uL (1.8-6.4); PLATELET COUNT 333 K/uL (156-360); RBC DIS.WIDTH-SD 51.8 % (39-53); RED BLOOD COUNT 4.42 M/uL (4.00-5.50); WHITE BLOOD COUNT 5.3 K/uL (4.1-10.2)
[2017-03-14 20:48] LABS: BACTERIA 2+ /HPF; EPITHELIAL CELLS NONE SEEN /HPF; MUCUS NONE SEEN /LPF; UCUL ADDED? YES; WHITE BLOOD CELLS TNTC /HPF (0-5)
[2017-03-14 20:48] LABS: CHLORIDE 110 mEq/L (99-109); POTASSIUM 4.1 mEq/L (3.7-5.4); SODIUM 142 mEq/L (136-147)
[2017-03-14 20:50] LABS: GLUCOSE 99 mg/dL (70-99)
[2017-03-14 20:51] LABS: ANION GAP 9 MEQ/L (2-14)
[2017-03-14 20:52] LABS: TOTAL BILIRUBIN 0.3 mg/dL (0.0-1.0)
[2017-03-14 20:54] LABS: ALKALINE PHOSPHATASE 192 IU/L (3-129); GFR ESTIMATE (CALCULATED) > 59 mL/min/
[2017-03-14 20:55] LABS: UREA NITROGEN (BUN) 17 mg/dL (9-23)
[2017-03-14 20:56] LABS: DIRECT BILIRUBIN 0.2 mg/dL (0.0-0.3)
[2017-03-14 21:00] LABS: TROP-I INTERPRETATION NEGATIVE; TROPONIN-I < 0.01 ng/mL (0.0-0.30)
[2017-03-14] MEDS ORDERED: COUMADIN2 MG PO (21:55)
[2017-03-14] MEDS ORDERED: WARFARIN SODIUM3 MG PO (21:56)
[2017-03-14] MEDS ORDERED: CYMBALTA60 MG PO (21:57)
[2017-03-14] MEDS ORDERED: CYMBALTA30 MG PO (21:57)
[2017-03-14] MEDS ORDERED: LOTRIMIN AF24 GM TP (21:59)
[2017-03-14] MEDS ORDERED: CALMOSEPTINE O120 GM TP (22:00)
[2017-03-15] VITALS (7 sets, daily range): BP systolic 94–121; BP diastolic 16–73
[2017-03-15 07:07] LABS: INTER. NORMALIZED RATIO 2.3; PROTHROMBIN TIME 23.5 (9.2-11.2)
[2017-03-15 10:05] LABS: HEMATOCRIT 40.1 % (38.0-50.0); MCH 27.5 PG (29.0-34.0); MCHC 30.7 G/DL (30.0-36.0); MCV 89.7 FL (86-99); MEAN PLAT.VOLUME 10.1 uM^3 (9.0-12.4); PLATELET COUNT 354 K/uL (156-360); RBC DIS.WIDTH-SD 52.4 % (39-53); RED BLOOD COUNT 4.47 M/uL (4.00-5.50); WHITE BLOOD COUNT 4.7 K/uL (4.1-10.2)
[2017-03-15 10:33] LABS: ANION GAP 9 MEQ/L (2-14); CHLORIDE 112 MEQ/L (99-109); GFR ESTIMATE (CALCULATED) > 59 mL/min/; GLUCOSE 114 mg/dL (70-99); POTASSIUM 4.1 MEQ/L (3.7-5.4); SAMPLE HEMOLYSIS CHECK 0; SAMPLE ICTERIC CHECK 0; SAMPLE LIPEMIA CHECK 0; SODIUM 148 MEQ/L (136-147); UREA NITROGEN (BUN) 17 mg/dL (9-23)
[2017-03-15 16:36] LABS: ANION GAP 8 MEQ/L (2-14); CHLORIDE 112 MEQ/L (99-109); POTASSIUM 3.8 MEQ/L (3.7-5.4); SAMPLE HEMOLYSIS CHECK 0; SAMPLE ICTERIC CHECK 0; SAMPLE LIPEMIA CHECK 0; SODIUM 144 MEQ/L (136-147)
[2017-03-15 16:41] LABS: GFR ESTIMATE (CALCULATED) > 59 mL/min/; GLUCOSE 90 mg/dL (70-99); UREA NITROGEN (BUN) 14 mg/dL (9-23)
[2017-03-16 03:21] VITALS: BP 120/72
[2017-03-16 06:08] LABS: HEMATOCRIT 37.3 % (38.0-50.0); MCH 27.9 PG (29.0-34.0); MCHC 31.6 G/DL (30.0-36.0); MCV 88.2 FL (86-99); MEAN PLAT.VOLUME 9.6 uM^3 (9.0-12.4); PLATELET COUNT 328 K/uL (156-360); RBC DIS.WIDTH-CV 15.8 % (11.8-14.6); RBC DIS.WIDTH-SD 51.2 % (39-53); RED BLOOD COUNT 4.23 M/uL (4.00-5.50); WHITE BLOOD COUNT 5.9 K/uL (4.1-10.2)
[2017-03-16 06:32] LABS: ANION GAP 10 MEQ/L (2-14); CHLORIDE 112 MEQ/L (99-109); GFR ESTIMATE (CALCULATED) > 59 mL/min/; GLUCOSE 77 mg/dL (70-99); POTASSIUM 3.9 MEQ/L (3.7-5.4); SAMPLE HEMOLYSIS CHECK 0; SAMPLE ICTERIC CHECK 0; SAMPLE LIPEMIA CHECK 0; SODIUM 144 MEQ/L (136-147); UREA NITROGEN (BUN) 12 mg/dL (9-23)
[2017-03-16 08:00] VITALS: BP 112/70
[2017-03-16 16:35] VITALS: BP 123/74
[2017-03-16 23:12] VITALS: BP 104/71
[2017-03-17 06:42] LABS: INTER. NORMALIZED RATIO 2.6; PROTHROMBIN TIME 26.9 (9.2-11.2)
[2017-03-17 06:55] VITALS: BP 105/67
[2017-03-17 08:30] VITALS: BP 124/73
[2017-03-17 10:44] LABS: MCH 27.6 PG (29.0-34.0); MCHC 31.5 G/DL (30.0-36.0); MCV 87.7 FL (86-99); MEAN PLAT.VOLUME 9.4 uM^3 (9.0-12.4); PLATELET COUNT 335 K/uL (156-360); RBC DIS.WIDTH-CV 15.9 % (11.8-14.6); RED BLOOD COUNT 4.56 M/uL (4.00-5.50); WHITE BLOOD COUNT 5.2 K/uL (4.1-10.2)
[2017-03-17 11:15] LABS: ANION GAP 10 MEQ/L (2-14); CHLORIDE 112 MEQ/L (99-109); GFR ESTIMATE (CALCULATED) > 59 mL/min/; POTASSIUM 3.9 MEQ/L (3.7-5.4); SAMPLE HEMOLYSIS CHECK 0; SAMPLE ICTERIC CHECK 0; SAMPLE LIPEMIA CHECK 0; SODIUM 144 MEQ/L (136-147); UREA NITROGEN (BUN) 14 mg/dL (9-23)
[2017-03-17 11:18] LABS: GLUCOSE 164 mg/dL (70-99)
[2017-03-17 15:44] VITALS: BP 102/67
[2017-03-17 15:58] LABS: ADD MIUA? YES; BILIRUBIN NEGATIVE; BLOOD SMALL; COLOR YELLOW ((YELLOW)); GLUCOSE (STRIP) NEGATIVE; KETONES 5; LEUKOCYTES LARGE; NITRITE NEGATIVE; PROTEIN (STRIP) 30; SPECIFIC GRAVITY 1.017 (1.000-1.030); UROBILINOGEN 0.2 MG/DL (0.2-1.0)
[2017-03-17 16:31] LABS: BACTERIA 1+ /HPF; EPITHELIAL CELLS RARE /HPF; MUCUS NONE SEEN /LPF; RED BLOOD CELLS 0-5 /HPF (0-5); UCUL ADDED? NO; WHITE BLOOD CELLS 20-30 /HPF (0-5)
[2017-03-17 16:32] LABS: CASTS PRESENT /LPF; HYALINE CASTS 0-5 /LPF
[2017-03-17 17:09] LABS: POINT-OF-CARE METER ID UU14208750; POINT-OF-CARE USER ID PUTDRM
[2017-03-18 00:03] VITALS: BP 106/72
[2017-03-18 00:07] VITALS: BP 100/67
[2017-03-18 06:52] LABS: INTER. NORMALIZED RATIO 3.4
[2017-03-18 07:42] VITALS: BP 162/81
[2017-03-18 07:49] LABS: HEMATOCRIT 38.3 % (38.0-50.0); MCH 27.5 PG (29.0-34.0); MCHC 31.6 G/DL (30.0-36.0); PLATELET COUNT 325 K/uL (156-360); RBC DIS.WIDTH-CV 16.1 % (11.8-14.6); RBC DIS.WIDTH-SD 51.3 % (39-53); WHITE BLOOD COUNT 4.9 K/uL (4.1-10.2)
[2017-03-18 08:06] LABS: ANION GAP 10 MEQ/L (2-14); CHLORIDE 113 MEQ/L (99-109); GFR ESTIMATE (CALCULATED) > 59 mL/min/; POTASSIUM 3.7 MEQ/L (3.7-5.4); SAMPLE HEMOLYSIS CHECK 0; SAMPLE ICTERIC CHECK 0; SAMPLE LIPEMIA CHECK 0; SODIUM 145 MEQ/L (136-147); UREA NITROGEN (BUN) 15 mg/dL (9-23)
[2017-03-18 08:07] LABS: GLUCOSE 103 mg/dL (70-99)
[2017-03-18 16:19] VITALS: BP 113/62
[2017-03-19 00:03] VITALS: BP 106/72
[2017-03-19 07:30] LABS: INTER. NORMALIZED RATIO 3.8; PROTHROMBIN TIME 40.8 (9.2-11.2)
[2017-03-19 07:53] VITALS: BP 105/68
== END 2017-03-19 15:09 | DRG 71 ==
LOC: EME → EDBD 19:19 → EME 19:19 → EDOF 23:19 → 2EAST 23:19
PROVIDERS: Emergency Medicine; Hospitalist; Internal Medicine; Physician Assistant
DX: G93.41 Metabolic encephalopathy (principal); C81.90 Hodgkin lymphoma, unspecified, unspecified site; J98.11 Atelectasis; N20.2 Calculus of kidney with calculus of ureter; E11.51 Type 2 diabetes mellitus with diabetic peripheral angiopathy without gangrene; E78.5 Hyperlipidemia, unspecified; F03.90 Unspecified dementia, unspecified severity, without behavioral disturbance, psychotic disturbance, mood disturbance, and anxiety; I10 Essential (primary) hypertension; I48.2 Chronic atrial fibrillation; Q54.8 Other hypospadias; K56.41 Fecal impaction; N31.9 Neuromuscular dysfunction of bladder, unspecified; Z96.652 Presence of left artificial knee joint; R79.1 Abnormal coagulation profile; N47.2 Paraphimosis; R41.0 Disorientation, unspecified; R13.10 Dysphagia, unspecified; Z86.73 Personal history of transient ischemic attack (TIA), and cerebral infarction without residual deficits; Z87.440 Personal history of urinary (tract) infections; Z87.442 Personal history of urinary calculi; Z79.01 Long term (current) use of anticoagulants; Z89.611 Acquired absence of right leg above knee; Z80.0 Family history of malignant neoplasm of digestive organs; Z82.3 Family history of stroke; Z82.49 Family history of ischemic heart disease and other diseases of the circulatory system; Z91.041 Radiographic dye allergy status; Z88.5 Allergy status to narcotic agent; Z88.1 Allergy status to other antibiotic agents
CPT/HCPCS: 70450; 71010; 74176; 80048; 80048 91; 80076; 81003; 82948; 83605; 84484; 85025; 85027; 85610; 87040; 87086 GA; 92610 GN; 93005; 99281; 99285; J0456; J0692; J1956; J7030; J7050; S0028

== ENCOUNTER 2017-07-13 11:25 | Emergency (ER) | payer OTHER, MEDICARE ==
[~2017-07-13] VITALS: Ht 180.3 cm; Wt 81.7 kg
[~2017-07-13 11:25] MED LIST changes: +CIPRO500 MG PO; +CYMBALTA30 MG PO; +DUONEB 2.5-0.5 M3 ML AEROSOL; +HIPREX1 GM PO; +MAGIC CUP PO; +NEURONTIN400 MG PO; +WARFARIN SODIUM3 MG PO
[2017-07-13 12:08] LABS: EOSINOPHIL (%) 2.2 % (0-5); EOSINOPHIL COUNT 0.2 K/uL (0-0.3); HEMATOCRIT 44.4 % (38.0-50.0); IMMATURE GRANULOCYTE (%) 0.3 % (0.0-0.7); INSTRUMENT ABS NEUTROPHIL CT 5.2 K/uL; LYMPHOCYTE COUNT 0.7 K/uL (1.0-2.8); MCH 25.8 PG (29.0-34.0); MCHC 31.1 G/DL (30.0-36.0); MCV 83.1 FL (86-99); MONOCYTE (%) 10.1 % (3-12); MONOCYTE COUNT 0.7 K/uL (0-0.8); NEUTROPHIL (%) 76.4 % (45-76); NEUTROPHIL COUNT 5.2 K/uL (1.8-6.4); PLATELET COUNT 367 K/uL (156-360); RBC DIS.WIDTH-CV 17.7 % (11.8-14.6); RED BLOOD COUNT 5.34 M/uL (4.00-5.50); WHITE BLOOD COUNT 6.8 K/uL (4.1-10.2)
[2017-07-13 12:17] LABS: CHLORIDE 109 mEq/L (99-109); POTASSIUM 3.7 mEq/L (3.7-5.4); SODIUM 143 mEq/L (136-147)
[2017-07-13 12:19] LABS: GLUCOSE 119 mg/dL (70-99)
[2017-07-13 12:20] LABS: ANION GAP 10 MEQ/L (2-14)
[2017-07-13 12:23] LABS: ALKALINE PHOSPHATASE 108 IU/L (3-129); GFR ESTIMATE (CALCULATED) > 59 mL/min/
[2017-07-13 12:24] LABS: UREA NITROGEN (BUN) 15 mg/dL (9-23)
[2017-07-13 12:26] LABS: TOTAL BILIRUBIN 0.5 mg/dL (0.0-1.0)
[2017-07-13 12:28] LABS: TROP-I INTERPRETATION NEGATIVE; TROPONIN-I < 0.01 ng/mL (0.0-0.30)
[2017-07-13] MEDS ORDERED: NEURONTIN300 MG PO (12:44)
[2017-07-13 13:49] LABS: ADD MIUA? YES; BILIRUBIN NEGATIVE; BLOOD SMALL; COLOR YELLOW ((YELLOW)); GLUCOSE (STRIP) NEGATIVE; KETONES NEGATIVE; LEUKOCYTES MODERATE; NITRITE NEGATIVE; PROTEIN (STRIP) 30; SPECIFIC GRAVITY 1.012 (1.000-1.030); UROBILINOGEN 0.2 MG/DL (0.2-1.0)
[2017-07-13 13:55] LABS: BACTERIA RARE /HPF; BUDDING YEAST 4+; CALCIUM OXALATE CRYSTALS 2+ /HPF; EPITHELIAL CELLS RARE /HPF; MUCUS 1+ /LPF; RED BLOOD CELLS 30-40 /HPF (0-5); UCUL ADDED? YES; WHITE BLOOD CELLS 30-40 /HPF (0-5)
[2017-07-13 14:40] VITALS: BP 153/88
== END 2017-07-13 16:31 ==
LOC: EME 11:25
PROVIDERS: Emergency Medicine
DX: F03.90 Unspecified dementia, unspecified severity, without behavioral disturbance, psychotic disturbance, mood disturbance, and anxiety (principal); N39.0 Urinary tract infection, site not specified; Z96.0 Presence of urogenital implants; R91.8 Other nonspecific abnormal finding of lung field; L89.159 Pressure ulcer of sacral region, unspecified stage; Z86.73 Personal history of transient ischemic attack (TIA), and cerebral infarction without residual deficits; I10 Essential (primary) hypertension; Z89.611 Acquired absence of right leg above knee; Z79.01 Long term (current) use of anticoagulants
CPT/HCPCS: 70450; 71010; 80053; 81003; 83605; 84484; 85025; 87040; 87086; 87106; 93005; 99281; 99285